=== PATIENT | male | born 1950 | race Caucasian/White ===

== ENCOUNTER → 2018-08-03 | Outpatient (CLI) | payer OTHER ==
[~2018-08-03] VITALS: Ht 180.3 cm; Wt 74.8 kg
[~2018-08-03] MED LIST: AMOXICILLIN 50500 MG PO; BENADRYL25 MG PO; LIPITOR10 MG PO; NAPROSYN500 MG PO; NORCO 5-325 TA1 EACH PO; PRILOSEC 20 MG20 MG PO; RHINOCORT ALL8.43 ML NASAL; TYLENOL PM EX-1 EACH PO
--- NOTE | 2018-08-06 11:03 | P ---
[facility] [place] [address] PROCEDURE REPORT Name: LEECECILIO Room #: REG [facility].#: [id number] Admission: 08/03/18 Attend Phys: John Morales MD Discharge: Date of : 50 Report #: [id number] THIS REPORT FOR: //name// CC: John Sotelo MD BRIEF HISTORY: The patient is a 67-year-old male, known to me with a history of multiple colon adenomas and advance rectal adenoma with a large tubulovillous adenoma removed, for high risk screening colonoscopy. Previous history of 6 adenomas including advanced rectal adenoma PREOPERATIVE DIAGNOSIS: High risk screening old colonoscopy due to the advanced adenoma and multiple polyps. POSTOPERATIVE DIAGNOSES: 1. Colon polyps. 2. Moderate sigmoid diverticulosis, coli. 3. Small internal hemorrhoids. MEDICATIONS: Deep sedation with propofol per Anesthesia. SPECIMENS: 1. Polyps x 2, proximal ascending colon. 2. Polyp at 60 cm. ESTIMATED BLOOD LOSS: 3 mL. PROCEDURE: Colonoscopy to cecum and terminal ileum with snare polypectomy and biopsy. FINDINGS: Prior to propofol sedation, procedure of colonoscopy discussed with the patient as well as potential risks and its complications. He indicates he understands and desires to proceed. DESCRIPTION OF PROCEDURE: With the patient in left lateral decubitus position, digital examination was completed, which revealed no abnormalities. Subsequently, the Olympus video colonoscope was introduced in the rectum, advanced under direct vision to the cecum. Done with minimal difficulty. The cecum was identified by the ileocecal valve and the appendiceal orifice. I was able to visualize the distal segment of the terminal ileum, which was inspected and noted to be unremarkable. At that point, the scope was slowly withdrawn and careful circumferential views obtained. As we withdrew the scope, the prep was good. The mucosa was within normal limits, normal vascular pattern and normal light reflex. In the proximal ascending colon, 2 diminutive polyps were seen and removed by biopsy. Scope was further withdrawn and no additional abnormalities were noted until the descending colon was reached and at about 60 [facility] [address] [place] [address] PROCEDURE REPORT Name: CECILIO LEE Room #: [facility].#: [id number] Admission: 08/03/18 Attend Phys: John Morales MD Discharge: Date of : 50 Report #: [id number] cm, a 5-6 mm sessile polyp was seen and removed by cold snare polypectomy. Scope was further withdrawn. No additional neoplastic lesions were seen. In the sigmoid colon, there was noted to be moderately severe diverticular disease without endoscopic evidence of diverticulitis. Scope was withdrawn in the rectum and no polyps were seen. The previous polypectomy site was seen and noted to be unremarkable without evidence of residual polyp tissue. The tattoo doty were seen and no neoplastic lesions were seen. Upon retroflexion, small internal hemorrhoids were seen as well. The scope was withdrawn. The patient tolerated the procedure well. CONDITION OF THE PATIENT UPON DISCHARGE: Following procedure, the patient was drowsy, arousable and conversant and will be discharged home when fully ambulatory. INSTRUCTIONS TO THE PATIENT AND FAMILY AT THE TIME OF DISCHARGE: 3 polyps identified and removed as described above. If all 3 are adenomas, he should return in 3 years, otherwise 5 years would be indicated. Last colonoscopy was about 3-1/2 years ago. Withdrawal time from the cecum was 13 minutes and 3 seconds. <ELECTRONICALLY SIGNED> By: John Morales MD 08/06/18 1103 [id number] John Morales MD /nt
--- NOTE | 2018-08-06 16:10 | PATH ---
[facility] [address] [place] [address] PATHOLOGY RPT PROCEDURE Name: WILEY ROTHMAN Room #: REG [facility]#: [id number] Admission: 08/03/18 Date of : 50 Discharge: Report #: [id number] Path Case #: [id number] [facility] Accession Number: [id number] . 01 Material submitted: . PART A: PROXIMAL ASCENDING COLON POLYP X2 PART B: 60CM POLYP . 01 Clinical history: . Pre-OP DX: Hx of polyps Post-OP DX: Polyp . 02 Diagnosis: A. Polyps x2, proximal ascending colon polyps, endoscopic biopsy: - Tubular adenoma without high grade dysplasia. - Hyperplastic polyp without dysplasia. . B. Polyp, 60 cm, endoscopic biopsy: - Inflamed tubular adenoma. - Negative for high grade dysplasia. . (IUV:mml; 08/06/2018) QLM/08/06/2018 . 02 Electronically signed: . Greta Mcclain MD, Pathologist NPI- [id number] . 01 Gross description: . A. Received in formalin labeled "Wiley Rothman, proximal ascending colon polyp," are 2 segments of blake soft tissue measuring 0.9 x 0.2 x 0.3 cm in aggregate dimensions and ranging from 0.4 to 0.5 cm in maximum dimension. The specimen is submitted entirely in cassette A1. . B. Received in formalin labeled "Wiley Rothman, 60 cm polyp," is a single segment of blake soft tissue measuring 0.7 cm in maximum dimension. The specimen is entirely submitted in cassette B1. (TSD; 08/03/2018) TOB/TOB . 02 Microscopic: . . . 02 Pathologist provided ICD-10: D12.2, D12.6, K63.5 . 02 CPT . [address] [address] PATHOLOGY RPT PROCEDURE Name: WILEY ROTHMAN Room #: REG [facility]#: [id number] Admission: 08/03/18 Date of : 50 Discharge: Report #: [id number] Path Case #: [id number] Specimen Comment: A courtesy copy of this report has been sent to Specimen Comment: [phone], . Specimen Comment: Report sent to and Performed at: [address], [place], [place] [id number] MD Corona Lindsey MD Phone: [phone] Performed at: [address] [id number] MD Greta Mcclain MD Phone: [phone]
== END | disposition home or self-care (01) ==
LOC: GI 06:04
DX: Z12.11 Encounter for screening for malignant neoplasm of colon (principal); D12.2 Benign neoplasm of ascending colon; D12.4 Benign neoplasm of descending colon; K63.5 Polyp of colon; Z86.010 Personal history of colon polyps; K57.30 Diverticulosis of large intestine without perforation or abscess without bleeding; K64.8 Other hemorrhoids; E78.5 Hyperlipidemia, unspecified; K21.9 Gastro-esophageal reflux disease without esophagitis; Z87.891 Personal history of nicotine dependence; Z98.41 Cataract extraction status, right eye; Z98.42 Cataract extraction status, left eye; Z98.890 Other specified postprocedural states; Z79.899 Other long term (current) drug therapy